=== PATIENT | male | born 1955 | race African-American/Black ===

== ENCOUNTER 2023-03-03 18:18 | Emergency (ER) | payer MEDICARE, MEDICAID ==
[~2023-03-03] VITALS: Ht 182.9 cm; Wt 165.0 kg
[2023-03-03 18:22] VITALS: TEMP 98.1; O2SAT 99
[2023-03-03] MEDS ORDERED: ACETAMINOPHEN 325MG TABLET PO STA (18:39)
[2023-03-03 19:38] LABS: BASOPHILS % 0.4 % (0.0-2.0); HEMOGLOBIN. 13.2 g/dL (14.0-18.0); LYMPHOCYTES % 14.7 % (20.0-50.0); MEAN CORPUSCULAR HEMOGLOBIN 27.5 pg (28.0-32.0); MEAN CORPUSCULAR HGB CONC 32.1 g/dL (31.0-37.0); MEAN CORPUSCULAR VOLUME 85.8 fL (80.0-94.0); MEAN PLATELET VOLUME 8.7 fl (7.4-10.4); MONOCYTES % 11.7 % (2.0-8.0); NEUTROPHILS % 72.2 % (40.0-76.0); PLATELET 222 x1000/uL (130-400); RED BLOOD CELL COUNT 4.77 mill/uL (4.7-6.1); RED CELL DISTRIBUTION WIDTH 15.1 % (11.6-14.6); WHITE BLOOD COUNT 10.2 x1000/uL (4.5-11.0)
[2023-03-03 19:56] LABS: ALANINE AMINOTRANSFERASE 19 IU/L (10-49); ALBUMIN 4.6 g/dL (3.2-4.8); ASPARTATE AMINOTRANSFERASE 49 IU/L (<34); BILIRUBIN TOTAL 1.3 mg/dL (0.1-1.0); CALCIUM 9.4 mg/dL (8.7-10.4); CARBON DIOXIDE 26 mEq/L (21-32); CHLORIDE 100 mEq/L (98-107); CREATININE 1.3 mg/dL (0.6-1.3); GLUCOSE 141 mg/dL (70-105); POTASSIUM 3.7 mEq/L (3.5-5.1); SODIUM 135 mEq/L (136-145); TROPONIN I HIGH SENSITIVITY 26 ng/L (3.0-53); UREA NITROGEN BLOOD 19 mg/dL (9-23)
[2023-03-04] MEDS ORDERED: ACET-2708 MT (00:35)
[2023-03-04 01:17] VITALS: BP 149/50; PULSE 91; RESP 16
== END 2023-03-04 01:42 | disposition home or self-care (01) ==
LOC: ER 18:18
DX: M79.605 Pain in left leg (principal); R07.89 Other chest pain; S30.811A Abrasion of abdominal wall, initial encounter; Y08.89XA Assault by other specified means, initial encounter; Y93.89 Activity, other specified; Y92.89 Other specified places as the place of occurrence of the external cause; Y99.8 Other external cause status
CPT/HCPCS: 80053; 83690; 85025; 84484; 36415; 71045; 73562; 73590; 71260; 74177; 93005; 99285; Z7610 ×3